=== PATIENT | female | born 1940 | race Caucasian/White ===

== ENCOUNTER → 2016-09-15 | Outpatient (CLI) | payer MEDICARE, BC ==
--- NOTE | 2016-09-16 13:55 | PE ---
EXAMINATION TYPE: PET CT fusion skull to thigh DATE OF EXAM: 09/15/2016 2:20 PM CLINICAL HISTORY: 76-year-old female primary staging left lower lobe lung cancer. TECHNIQUE: Following the intravenous administration of 12.9 mCi of F-18 FDG, whole body images are performed from the skull base to the midthigh. Images are reviewed on the computer in the coronal, a xial, and sagittal planes. Reconstructed rotating images are created on independent workstation and reviewed on the computer. A localization and attenuation correction CT is performed in conjunction with the PET scan. Glucose level: 118 mg/dL COMPARISON: None. FINDINGS: PET: Right-sided C3-C4 facet arthropathy shows moderate FDG uptake on a degenerative basis. Otherwise, the re is physiologic FDG uptake within the neck. Nonenlarged mediastinal lymph nodes are present, some are prominent measuring up to 9 mm such as in t he AP window. These do not show discrete hypermetabolism. Mild hypermetabolism in the right hilum, maximal SUV 2.6 is nonspecific probably represents a couple reactive/post inflammatory lymph nodes. The irregular nodule within the posterior left lower lobe measures 1.6 cm and shows very faint FDG up take, maximal SUV 1.1. Variable mild bowel activity is likely muscular activity. Otherwise, physiologic FDG uptake within th e abdomen and pelvis. ATTENUATION CORRECTION CT: Visualized paranasal sinuses and mastoid air cells appear clear. Scattered nonenlarged cervical lymph nodes are noted on both sides of the neck. Orotracheal column is clear. Heart is upper limits of normal in size without pericardial effusion. Coronary vessel calcifications are present in remarkable for coronary artery disease. Biapical pleural parenchymal scarring with ba ckground of emphysematous change in the upper to mid lungs. No consolidation or pleural effusion. Moderate size hiatal hernia. Cholecystectomy clips. No dilated small bowel, free fluid, or free air. No mesenteric or retroperitoneal lymphadenopathy seen. Moderate atherosclerotic calcifications with in the abdominal aorta and common iliac arteries without aneurysm. Bladder nondistended. Uterus may be surgically absent. Ovaries not clearly delineated from adjacent b owel loops. No abnormal fluid collection in the pelvis or pelvic lymphadenopathy seen. Bones: Degenerative changes mid to lower lumbar spine with anterolisthesis at L5-S1 and additional de generative changes throughout the cervical spine. Some scattered mild degenerative FDG uptake is pres ent in the spine moderate in the right C3-C4 cervical facet joint. IMPRESSION: 1. A 1.6 cm left lower lobe pulmonary nodule shows no significant hypermetabolism. Findings could rep resent a benign postinflammatory etiology. The possibility of a low-grade carcinoma or carcinoid tumo r is not entirely excluded. If there is no intervention, 3, 9, and 24 month follow up exams can be pe rformed. 2. COPD. Mild FDG uptake within a couple nonenlarged right hilar lymph nodes is likely reactive. 3. Some degenerative FDG uptake throughout the spine especially in an upper right cervical facet and lower lumbar spine.
== END | disposition home or self-care (01) ==
LOC: RADPETMAIN 12:42
PROVIDERS: ATTEND Internal Medicine Critical Care Medicine
DX: R91.1 Solitary pulmonary nodule (principal); J44.9 Chronic obstructive pulmonary disease, unspecified
CPT/HCPCS: 78815; A9552

== ENCOUNTER → 2025-04-01 | Outpatient (CLI) | payer MEDICARE ==
--- NOTE | 2025-04-01 16:26 | PE ---
EXAMINATION TYPE: PET CT fusion skull to thigh DATE OF EXAM: 04/01/2025 COMPARISON: Prior PET/CT September 15, 2016 HISTORY: Solitary pulmonary nodule TECHNIQUE: Following the intravenous administration of 11.21 mCi of F-18 FDG, whole body images are performed from the skull base to the midthigh. Images are reviewed on the computer in the coronal, a xial, and sagittal planes. Reconstructed rotating images are created on independent workstation and reviewed on the computer. A localization and attenuation correction CT is performed in conjunction with the PET scan. SCAN: Initial Scan FINDINGS: SKULL BASE AND NECK: No areas of suspicious abnormal hypermetabolic uptake CHEST, MEDIASTINUM, AND HILAR REGION: There is 5.2 cm anterior right upper lobe hypermetabolic mass, max SUV is 16.37. There are scattered foci of groundglass opacity and areas of nodular consolidation anteriorly in both lungs. Nodular consolidation posterior right mid lung axial image 101 has mild hyp ermetabolic uptake, max SUV is 3.51. There is additional focal consolidation posterior left lung base without abnormal hypermetabolic uptake. Abnormal hypermetabolic thoracic lymph nodes are seen. For reference 2.0 cm paracarinal lymph node ax ial image 85 with max SUV of 8.12. 4 reference is 1.5 cm AP window lymph node axial image 84 with Max SUV of 4.9. Nonspecific anterior left hilar subcentimeter lymph node with max SUV 3.92 axial image 9 1. ABDOMEN AND PELVIS: No areas of suspicious abnormal hypermetabolic uptake. OSSEOUS STRUCTURES: No areas of suspicious abnormal hypermetabolic uptake OTHER CT: Small to moderate-sized hiatal hernia. Moderate to severe coronary artery calcification. Ch olecystectomy clips are seen. Uterus is surgically absent atrophic in appearance. Multilevel spondylo listhesis and degenerative changes in the lumbar spine is present. IMPRESSION: Right upper lobe malignant primary neoplasm identified. Abnormal thoracic lymph nodes are seen as detailed above. Additional areas of involvement in both lungs favor postinfectious or inflam matory etiology. No distal metastatic disease seen. [facility], , 04/01/2025 4:24 PM
== END | disposition home or self-care (01) ==
LOC: RADPETMAIN 12:29
PROVIDERS: ATTEND Internal Medicine Critical Care Medicine
DX: R91.8 Other nonspecific abnormal finding of lung field (principal); C34.11 Malignant neoplasm of upper lobe, right bronchus or lung
CPT/HCPCS: 78815; A9552